=== PATIENT | female | born 1975 | race Caucasian/White ===

== ENCOUNTER 2022-11-22 04:53 | Observation (INO) ==
--- NOTE | 2022-11-02 11:31 | PAT Medication Instructions ---
Medication Instructions Date of Service November 02, 2022 Home Medications Medication Instructions Recorded Jean Arrington #1 ea 10/06/22 oxycodone-acetaminophen 5 mg-325 1 tab PO Q6H PRN pain #30 tabs 10/06/22 mg tablet (Percocet) Jean Arrington oxycodone-acetaminophen 5 mg-325 mg tablet (Percocet) 1 tab PO Q6H PRN azelastine 137 mcg (0.1 %) nasal spray aerosol 2 spray intranasal BID PRN fluticasone propionate 50 mcg/actuation nasal spray,suspension 2 spray intranasal QAM PRN hydrocortisone 2.5 % topical ointment 1 applic topical TID PRN loratadine 10 mg tablet (Claritin) 10 mg PO DAILY PRN naproxen 500 mg tablet,delayed release 500 mg PO BID PRN ondansetron 4 mg disintegrating tablet 4 mg PO Q6H PRN promethazine 25 mg tablet 25 mg PO UD PRN Continue as directed promethazine 25 mg tablet 25 mg PO UD PRN ondansetron 4 mg disintegrating tablet 4 mg PO Q6H PRN(if needed) ASK your surgeon for instructions naproxen 500 mg tablet,delayed release 500 mg PO BID PRN STOP taking 24 hours before surgery hydrocortisone 2.5 % topical ointment 1 applic topical TID PRN DO NOT take the morning of surgery loratadine 10 mg tablet (Claritin) 10 mg PO DAILY PRN Take morning of surgery With a small sip of water, OTHERWISE NOTHING TO EAT OR DRINK AFTER MIDNIGHT: oxycodone-acetaminophen 5 mg-325 mg tablet (Percocet) 1 tab PO Q6H PRN(if needed) azelastine 137 mcg (0.1 %) nasal spray aerosol 2 spray intranasal BID PRN(if needed) fluticasone propionate 50 mcg/actuation nasal spray,suspension 2 spray intranasal QAM PRN(if needed) Take evening before surgery oxycodone-acetaminophen 5 mg-325 mg tablet (Percocet) 1 tab PO Q6H PRN(if needed) azelastine 137 mcg (0.1 %) nasal spray aerosol 2 spray intranasal BID PRN(if needed) Other Notes If you have any questions please call us at [phone] or [phone] or [phone] or [phone]
--- NOTE | 2022-11-08 08:52 | Anesthesiology Consultation ---
Date of Service November 08, 2022 Assessment & Plan (1) Encounter for pre-operative examination: - significant anxiety regarding needles/procedures. Pt tolerated lab draws in PAT well today. - Outpatient joint pathway: Per surgeon and patient, plan for outpatient joint program. Upon review of chart- patient is an acceptable candidate for [facility] Day [facility] Program from anesthesia perspective pending perioperative course. Pending patient is motivated, has good support and surgeon's office completes Same Day Joint Program preop requirements- patient may proceed with outpatient JAYLEN. Chart Review Chart Review: Acceptable Risk for Surgery and Patient seen in Pre Admission Testing Teaching & Discussion Pre-Anesthesia Teaching/Discussion Notes: Instructed NPO after midnight before surgery, except medications with 15 cc of water. Medication instructions provided according to the PAT guidelines. History Surgery Operation Date: 11/22/22 13:00 Proposed Procedures p Left Total Hip Arthroplasty Anterior - Alvarez Becker, Height/Weight Height: 5 ft 1 in Weight: 65.5 kg Allergies Allergy/AdvReac Type Severity Reaction Status Date / Time burnett Allergy Unknown hives and Verified 11/01/22 09:58 itching doxycycline [From Vibramycin] Allergy Unknown nausea/vomi Verified 11/01/22 09:58 ting nitrofurantoin Allergy Unknown nausea/vomi Verified 11/01/22 09:58 ting paprika Allergy Unknown itching Verified 11/01/22 09:58 povidone Allergy Unknown itching-"if Verified 11/01/22 09:58 left on too long" tramadol Allergy Unknown neuro Verified 11/08/22 09:13 complications Medications Home Medications Medication Instructions Recorded Confirmed Last Taken Wheeled Walker #1 ea 10/06/22 10/06/22 Unknown oxycodone-acetaminophen 5 mg-325 1 tab PO Q6H PRN pain #30 tabs 10/06/22 11/01/22 Unknown mg tablet (Percocet) azelastine 137 mcg (0.1 %) nasal 2 spray intranasal BID PRN 11/01/22 11/01/22 Unknown spray aerosol Congestion fluticasone propionate 50 2 spray intranasal QAM PRN 11/01/22 11/01/22 Unknown mcg/actuation nasal Congestion spray,suspension hydrocortisone 2.5 % topical 1 applic topical TID PRN 11/01/22 11/01/22 Unknown ointment Hemorrhoids loratadine 10 mg tablet (Claritin) 10 mg PO DAILY PRN Allergy Symptoms 11/01/22 11/01/22 Unknown naproxen 500 mg tablet,delayed 500 mg PO BID PRN w/menstrual 11/01/22 11/01/22 Unknown release cycle only ondansetron 4 mg disintegrating 4 mg PO Q6H PRN nausea w/menstrual 11/01/22 11/01/22 Unknown tablet cycle promethazine 25 mg tablet 25 mg PO UD PRN nausea w/menstrual 11/01/22 11/01/22 Unknown cycle Past Medical History Medical History (Updated 11/08/22 @ 09:20 by Lora Newsome PA-C) GERD (gastroesophageal reflux disease) rare, only with spicy foods. stable per pt History of anesthesia problem awareness during rhinoplasty and breast augmentation, pt states that she has been told she processes anesthesia quickly History of anxiety "w/procedures and needles" Hx gestational diabetes Nausea and vomiting after administration of anesthetic agent denies needing scop patch Patient denies h/o stroke, seizures, heart attack, heart failure, HTN, blood hari ts or blood transfusions. Exercise / Class Metabolic Activity II 4-5 Yardwork/Stairs/Walk up hill (denies chest discomfort or shortness of breath with 1 FOS) Past Surgical History Surgical History History of cervical cerclage Hx laparoscopic cholecystectomy Hx of anterior cruciate ligament tear reconstruction lt. knee Hx of breast augmentation age 15 Hx of breast reconstruction done w/mastectomy Hx of section Hx of colonoscopy Hx of mastectomy ~a few years ago; bilat.-"for dense tissue and implants causing pain" Hx of oral surgery lt front tooth, implant/crown-"fake tooth" Hx of rhinoplasty age 16 Past Anesthesia History No Family Hx of Anesthesia Complications and Other (awareness during rhinoplasty and breast augmentation) History of PONV History of PONV (denies needing scop patch) and Hx of Motion Sickness Social History Smoking Status: Never smoker Do You Dip or Chew Tobacco: No Hx Alcohol Use: Yes alcohol intake frequency: holidays/special occasions only Hx Substance Use: No substance use type: does not use Review of Systems Patient denies chest pain, shortness of breath, dyspnea on exertion, snoring, witnessed apneas, fever, chills, cough, wheezing, or palpitations. Physical Exam Vital Signs Vitals BP 125/89 P 91 TEMP 98.3 SP02 98% on RA RESP 17 Physical Full cervical extension range of motion without pain TMD 3.5 finger breadths Mallampati Score 1 Dentition: implant-front left upper; denies chipped or loose teeth, bridges Lungs: normal respiratory effort. Clear throughout to auscultation, no adventitious breath sounds Cardiac: regular rate and rhythm, no murmurs noted Carotid arteries: negative bruit bilat Lab Results Anesthesia Preop Results Results Anesthesia Widget: WBC 6.40 K/ul (4.8-10.8) 11/08/22 Hgb 13.7 g/dl (12.0-16.0) 11/08/22 Hct 41.4 % (34.1-44.9) 11/08/22 Plt 378 K/uL (130-400) 11/08/22 Na 139 mmol/L (136-145) 11/08/22 K 4.1 mmol/L (3.5-5.1) 11/08/22 Cl 105 mmol/L (98-107) 11/08/22 CO2 27 mmol/L (21-32) 11/08/22 BUN 13 mg/dl (6-23) 11/08/22 Creat 0.72 mg/dl (0.6-1.2) 11/08/22 Glucose Level 119 mg/dl (70-99(Fasting)) H 11/08/22 PT 9.8 Seconds (9.0-12.0) 11/08/22 PTT 25.1 Seconds (21.0-31.0) 11/08/22 INR 0.9 (0.9-1.1) 11/08/22 Blood Type A Positive 11/08/22 Antibody Screen NEGATIVE 11/08/22 Testing Electrocardiogram Date: 11/08/22 NSR, rate 93 bpm Chest X-Ray Date: 11/08/22 Cardiomediastinal and hilar silhouettes are within normal limits. There is no pneumothorax, pleural effusion, airspace consolidation or overt pulmonary edema. Bones of the chest appear grossly intact. Cholecystectomy. IMPRESSION: No acute process. COVID-19 Risk Screen Screening Information COVID-19 Screen Date: 11/08/22 Exposure 21 Days Family/Household +COVID Last 21 Days: No Exposure 10 Days Any COVID Exposure Last 10 Days: No Symptoms Last 10 Days Experienced COVID Sx Last 10 Days: No + COVID 0-90 Days COVID + in Last 0-90 Days: No
--- NOTE | 2022-11-18 16:27 | History & Physical Report ---
Date of Service November 18, 2022 Assessment & Plan (1) Osteoarthritis of left hip: We will proceed with a left anterior total of arthroplasty. Postoperatively she will be in our outpatient joint protocol. She will be discharged home and started on aspirin for DVT prophylaxis. She plans to see [facility] the following day. History of Present Illness Chief Complaint: Osteoarthritis of the left hip. Primary Care Provider: Fabricio Curtis MD Emelina is a pleasant 47-year-old female who has been dealing with chronic worsening left hip and groin pain. X-rays initially showed some moderate osteoarthritis of the left hip. I sent her to Dr. Hawk for a left intraarticular hip injection. The injection helped her for about 3 days. Unfortunately, her symptoms are back and worse. She has already done physical therapy. She has been taking anti-inflammatories and has tried activity modification. She is really struggling with her left hip. She feels she cannot get back to activities. After failing conservative treatment, she has elected to proceed with a left anterior total of arthroplasty. Allergies Allergy/AdvReac Type Severity Reaction Status Date / Time burnett Allergy Unknown hives and Verified 11/01/22 09:58 itching doxycycline [From Vibramycin] Allergy Unknown nausea/vomi Verified 11/01/22 09:58 ting nitrofurantoin Allergy Unknown nausea/vomi Verified 11/01/22 09:58 ting paprika Allergy Unknown itching Verified 11/01/22 09:58 povidone Allergy Unknown itching-"if Verified 11/01/22 09:58 left on too long" tramadol Allergy Unknown neuro Verified 11/08/22 09:13 complications Home Medications Medication Instructions Recorded Confirmed Type Wheeled Walker #1 ea 10/06/22 10/06/22 Rx oxycodone-acetaminophen 5 mg-325 1 tab PO Q6H PRN pain #30 tabs 10/06/22 11/01/22 Rx mg tablet (Percocet) azelastine 137 mcg (0.1 %) nasal 2 spray intranasal BID PRN 11/01/22 11/01/22 History spray aerosol Congestion fluticasone propionate 50 2 spray intranasal QAM PRN 11/01/22 11/01/22 History mcg/actuation nasal Congestion spray,suspension hydrocortisone 2.5 % topical 1 applic topical TID PRN 11/01/22 11/01/22 History ointment Hemorrhoids loratadine 10 mg tablet (Claritin) 10 mg PO DAILY PRN Allergy Symptoms 11/01/22 11/01/22 History naproxen 500 mg tablet,delayed 500 mg PO BID PRN w/menstrual 11/01/22 11/01/22 History release cycle only ondansetron 4 mg disintegrating 4 mg PO Q6H PRN nausea w/menstrual 11/01/22 11/01/22 History tablet cycle promethazine 25 mg tablet 25 mg PO UD PRN nausea w/menstrual 11/01/22 11/01/22 History cycle Past Med/Surg History Medical History GERD (gastroesophageal reflux disease) rare, only with spicy foods. stable per pt History of anesthesia problem awareness during rhinoplasty and breast augmentation, pt states that she has been told she processes anesthesia quickly History of anxiety "w/procedures and needles" Hx gestational diabetes Nausea and vomiting after administration of anesthetic agent denies needing scop patch Surgical History History of cervical cerclage Hx laparoscopic cholecystectomy Hx of anterior cruciate ligament tear reconstruction lt. knee Hx of breast augmentation age 15 Hx of breast reconstruction done w/mastectomy Hx of section Hx of colonoscopy Hx of mastectomy ~a few years ago; bilat.-"for dense tissue and implants causing pain" Hx of oral surgery lt front tooth, implant/crown-"fake tooth" Hx of rhinoplasty age 16 Social History Smoking Status: Never smoker Second Hand Exposure: No; Hx Alcohol Use: Yes Hx Substance Use: No Preferred Language: Belgian Communication Ability: Effective Children Teacher Required: No Beliefs That Will Affect Care: None Current Living Situation: Spouse and Family Feels Safe at Home: Yes Assistive Devices: Contacts, Glasses and Other Review of Systems All systems reviewed & are unremarkable except as noted in HPI & below. Physical Exam On physical examination of the left hip, she can flex 200 degrees. She had 30 degrees of external rotation 10 degrees of internal rotation. Most of her pain is located in the groin.. Constitutional WD/WN, vitals as above Eyes PERRL, conjunctivae normal, anicteric sclerae ENMT external ear and nose normal, oropharynx normal Neck trachea midline, no thyromegaly Respiratory normal respiratory effort, lungs clear to auscultation Cardiovascular RRR, no murmur, no edema Gastrointestinal (Abdomen) normal bowel sounds, soft, nontender, no hepatosplenomegaly Skin no rashes, warm and dry Psychiatric A+Ox3, euthymic affect Results & Data Results & Data Laboratory Results . Diagnostic Findings X-rays of the left hip show advanced osteoarthritis with joint space narrowing, osteophyte formation, and [id number] articulation. PG Care Time/CCT Total # of Minutes Spent Total Time Spent with Patient: Total time spent is greater than 50% in coordination of care (as documented) at patient's floor/unit and/or counseling patient: Coding Level of Care Code None Diagnoses Osteoarthritis of left hip M16.12
[2022-11-22] MEDS ORDERED: dexAMETHasone 4 MG TAB PO SCH (06:00)
[2022-11-22] MEDS ORDERED: FAMOTIDINE 20 MG TAB PO SCH (06:00)
[2022-11-22] MEDS ORDERED: ACETAMINOPHEN 500 MG TAB PO SCH (06:00)
[2022-11-22] MEDS ORDERED: ORTHO JOINT MIX INFIL SCH (06:00)
[2022-11-22] MEDS ORDERED: TRANEXAMIC ACID 1,000 MG **IV Pre-op IV SCH (06:00)
[2022-11-22] MEDS ORDERED: TRANEXAMIC ACID 1,000 MG **IV Intra-op IV SCH (06:00)
[2022-11-22] MEDS ORDERED: LR 500ML BOLUS, THEN 15ML/HR IV SCH (06:00)
[2022-11-22] MEDS ORDERED: LR 60ML/HR IV SCH (06:00)
[2022-11-22] MEDS ORDERED: GABAPENTIN 300 MG CAP PO SCH (06:00)
[2022-11-22] MEDS ORDERED: ceFAZolin 2000MG 2,000 MG/15 ML SYR IV SCH (06:00)
[2022-11-22 06:16] LABS: Pregnancy Test, Serum Negative (Negative)
[2022-11-22] MEDS ORDERED: MEPIVACAINE HCL 1.5% 30 ML VIAL ONE (06:16)
--- NOTE | 2022-11-22 06:31 | History & Physical Bridge Note ---
Date of Service November 22, 2022 History & Physical Bridge Note I have examined the patient, reviewed the History & Physical and in the interval since the performance of the History & Physical I have noted the following changes of clinical significance: no changes noted
[2022-11-22] MEDS ORDERED: fentaNYL citrate 100 MCG/2 ML VIAL ONE (06:37)
[2022-11-22] MEDS ORDERED: MIDAZOLAM HCL 1 MG/ML 2ML VIAL ONE ×2 (06:37→07:24)
[2022-11-22] MEDS ORDERED: ONDANSETRON INJ 2 MG/ML 2 ML VIAL ONE ×2 (06:37→09:18)
[2022-11-22] MEDS ORDERED: PROPOFOL IV EMULSION 10 MG/ML 20 ML VIAL IV ONE (06:37)
[2022-11-22] MEDS ORDERED: LIDOCAINE 2% MPF LOCAL 5 ML VIAL INFIL ONE (06:37)
[2022-11-22] MEDS ORDERED: ONDANSETRON INJ 2 MG/ML 2 ML VIAL IV PRN ×2 (06:48→13:49)
[2022-11-22] MEDS ORDERED: ePHEDrine sulfate 50 MG/ML AMP IV PRN (06:48)
[2022-11-22] MEDS ORDERED: ATROPINE SULFATE 0.1 MG/ML 10ML SYR IV PRN (06:48)
[2022-11-22] MEDS ORDERED: fentaNYL citrate 100 MCG/2 ML VIAL IV PRN (06:48)
[2022-11-22] MEDS ORDERED: ORTHO JOINT ANESTHETIC ONE (07:08)
[2022-11-22] MEDS ORDERED: KETAMINE 50 MG/5 ML SYRINGE ONE (07:31)
[2022-11-22] MEDS ORDERED: PHENYLEPHRINE HCL 10 MG/ML VIAL ONE (08:23)
--- NOTE | 2022-11-22 08:23 | Operative Report ---
PG Post Operative Report Pre & Post Diagnosis Operation Date: 11/22/22 07:15 Pre-Op Diagnosis: Degenerative Joint Disease Left Hip Post-Op Diagnosis: Degenerative Joint Disease Left Hip I identified the patient and participated in the time-out.: Yes Procedure Operation Date: 11/22/22 07:15 Actual Procedures p Left Total Hip Arthroplasty Anterior(Left) - Alvarez Becker DO Surgeon Alvarez Becker DO Gang Investigator Alvarez Noel PA-C Estimated Blood Loss 100 Findings Consistent with Post-Op Diagnosis Specimens Left femoral head Description of Procedure Implants used I used a [employer]immerBiomet total hip arthroplasty system with a size 3 standard offset Avenir Complete stem, a 48 mm G7 cup with a 25mm screw, an E1 polyethyl serg liner, a 32 mm ceramic head with a 0 neck. Emelina arrived at the hospital for the above procedure. She was seen in the preoperative holding area and the operative extremity was identified and signed. She was given a spinal anesthetic, a preoperative antibiotic, and TXA. She was then taken back to the operating room and laid on the table in the supine position. She was given basic sedation. The operative leg was secured to a Puristst leg positioner. The hip was then prepped and draped in sterile fashion. A timeout was done and the patient and the operative extremity was properly identified. An anterior approach was used. Dissection was taken down through the fascia and the tensor muscle belly was retracted laterally and the rectus was retracted medially. The circumflex vessels were identified and ligated. The capsule was then incised and tagged for later repair. The femoral neck was then cut and the femoral head was removed. The acetabulum was exposed. Time was spent doing a complete circumferential labral release. Sequential reaming of the acetabulum up to a size 47 reamer was done. Final reamings were done under fluoroscopy to ensure appropriate version. A Biomet 48 mm G7 cup was then impacted into place. A single 25 mm screw was placed. The E1 polyethylene liner was then snapped into place. Surrounding soft tissues were then injected with 100 cc of an orthopedic pain control cocktail. The proximal femur was then exposed. Sequential broaching up to a size 3 broach was done. Off that broach a size 32 head with a 0 neck was trialed. The hip was reduced and fluoroscopic images showed anatomic alignment of the implants in acceptable length. The broach was removed. The final size 3 standard offset Avenir Complete stem was then impacted into place. A ceramic 32 mm head with a 0 neck was then impacted onto the stem and the hip was reduced. Final fluoroscopic images showed anatomic alignment of the hip. The capsule was then closed with #1 Vicryl suture. A dilute betadyne lavage was then done for 3 minutes. The joint was then irrigated with normal saline solution. The fascia was closed with #1 PDS suture. Skin was closed with 2-0 Vicryl, farzana, and a Silverlon dressing. She was then transferred to a hospital bed and taken to the post anesthesia care unit in stable condition. She tolerated the procedure well. Alvarez Noel PA-C, was present for the entire procedure. He was critical for patient positioning, prepping, draping, retraction exposure, wound closure and application of sterile dressing. I attest to the content of the Intraoperative Record and any orders documented therein. Any exceptions are noted below.
[2022-11-22] MEDS ORDERED: oxyCODONE/ACETAMINOPHEN 5mg/325mg TAB PO PRN (08:26)
--- NOTE | 2022-11-22 08:56 | Fluoroscopy Report ---
FL hip LT 1V CLINICAL HISTORY: LT ANTERIOR HIPleft hip arthroplasty COMPARISON STUDY: None FLUOROSCOPY TIME: 12.6 seconds FLUOROSCOPY IMAGES: 1 EXPOSURE DOSE: 0.902 mGy (Air Kerma) FINDINGS: Satisfactory alignment of the left hip total joint arthroplasty. Expected postoperative sof t tissue swelling with deep tissue air. No acute fracture or unexpected opaque foreign body. IMPRESSION: Fluoroscopic assistance as above. ACT 112: Negative or not required by law. Electronically signed by: Néstor Huerta M.D. 11/22/2022 8:55 AM
--- NOTE | 2022-11-22 09:24 | XRay Report ---
AP PELVIS, CROSSTABLE LATERAL LEFT HIP History: Left total hip arthroplasty. Degenerative arthritis. Postop. FINDINGS: The patient is status post a left total hip arthroplasty. The hardware is intact. No fractu re or dislocation. Skin farzana are in place. IMPRESSION: Left total hip arthroplasty. No evidence for hardware complication. ACT 112: Negative or not required by law. Electronically signed by: Deacon Torre M.D. 11/22/2022 9:23 AM
--- NOTE | 2022-11-22 09:49 | Anesthesiology Progress Note ---
Date of Service November 22, 2022 Anesthesia Post Procedure Vital Signs Vital Signs: Temp Pulse Pulse Resp BP Pulse Ox O2 Del Method 11/22/22 09:35 98.1 F 92 H 20 112/64 97 Room Air 11/22/22 09:05 85 15 107/78 95 Room Air 11/22/22 09:25 91 H 23 116/62 95 Room Air 11/22/22 09:15 98.1 F 88 18 117/68 97 Room Air 11/22/22 08:55 83 23 107/76 96 Room Air 11/22/22 08:45 97.7 F 83 15 117/77 99 Oxymask 11/22/22 05:23 98.6 F 92 H 20 129/91 99 Room Air O2 Flow Rate 11/22/22 09:35 11/22/22 09:05 11/22/22 09:25 11/22/22 09:15 11/22/22 08:55 11/22/22 08:45 5 11/22/22 05:23 Pain Intensity Left Hip: Pain Intensity: 7 Transfer of Care Handoff Completed per policy Notes Mental Status: alert / awake / arousable and participated in evaluation Patient Amnestic to Procedure: Yes Nausea / Vomiting: adequately controlled Pain: adequately controlled Airway Patency, RR, SpO2: stable & adequate BP & HR: stable & adequate Hydration State: stable & adequate Neuraxial Anesthesia: was administered and sensory block is resolving Anesthetic Complications: no major complications apparent and Pt Satisfied with anesthetic care
[2022-11-22] MEDS ORDERED: AZELASTINE HCL 0.1% NASAL 200 SPRAYS/27,400 MCG BTL NAE PRN (13:49)
[2022-11-22] MEDS ORDERED: LORATADINE 10 MG TAB PO PRN (13:49)
[2022-11-22] MEDS ORDERED: HYDROmorphone INJ 0.5 MG/0.5 ML SYR IV PRN (13:49)
[2022-11-22] MEDS ORDERED: METOCLOPRAMIDE HCL INJ 5 MG/ML 2 ML VIAL IV PRN (13:49)
[2022-11-22] MEDS ORDERED: PROMETHAZINE HCL 25 MG TAB PO PRN (13:49)
[2022-11-22] MEDS ORDERED: NALOXONE HCL 0.4 MG/1 ML VIAL/CARP IV PRN (13:49)
[2022-11-22] MEDS ORDERED: bisacodyL 10 MG SUPP PR PRN (13:49)
[2022-11-22] MEDS ORDERED: FLUTICASONE PROPIONATE NA SPR 16 GM BTL PRN (13:49)
[2022-11-22] MEDS ORDERED: MAGNESIUM HYDROXIDE SUSP 30 ML UDC PO PRN (13:49)
[2022-11-22] MEDS ORDERED: HYDROCORTISONE HC 2.5% CRM 30GM TUBE EXT PRN (13:54)
[2022-11-22] MEDS: SODIUM CHLORIDE 0.9% 1000ML 1,000 ML IV SCH (14:16)
[2022-11-22] MEDS: KETOROLAC 30 MG/ML VIAL IV SCH ×2 (14:40→20:02)
[2022-11-22] MEDS: ACETAMINOPHEN 500 MG TAB PO SCH ×2 (14:40→21:48)
[2022-11-22] MEDS: oxyCODONE HCL IR 5 MG TAB (IMMEDIATE RELEASE) PO PRN (18:11)
[2022-11-22] MEDS: ceFAZolin 2000MG 2,000 MG/15 ML SYR IV SCH (20:02)
[2022-11-22] MEDS: DOCUSATE SODIUM 100 MG CAP PO SCH (20:11)
[2022-11-22] MEDS ORDERED: SENNA 8.6 MG TAB PO SCH (21:00)
[2022-11-22] MEDS: ASPIRIN 81 MG ECTAB PO SCH (21:28)
[2022-11-23] MEDS: SODIUM CHLORIDE 0.9% 1000ML 1,000 ML IV SCH (00:39)
[2022-11-23] MEDS: KETOROLAC 30 MG/ML VIAL IV SCH ×3 (01:32→08:07)
[2022-11-23] MEDS: ceFAZolin 2000MG 2,000 MG/15 ML SYR IV SCH (02:51)
[2022-11-23] MEDS: ACETAMINOPHEN 500 MG TAB PO SCH (06:17)
[2022-11-23] MEDS: oxyCODONE HCL IR 5 MG TAB (IMMEDIATE RELEASE) PO PRN (06:53)
--- NOTE | 2022-11-23 06:58 | Orthopedic Progress Note ---
Date of Service November 23, 2022 Assessment & Plan (1) Status post left hip replacement: Overall she is doing fairly well. She is no longer lightheaded when she stands up. She will get some breakfast this morning. She will be seen by physical therapy this morning for ambulation and range of motion exercises. If she does well with that, she can be discharged home. She will follow-up orthopedics in 2 weeks. She is on aspirin for DVT prophylaxis. Valente Tarango was seen and examined at bedside this morning. Overall she is feeling pretty well. She is still having a little bit of pain in the left hip. She is no longer becoming lightheaded when she sits up. She was able to get some sleep last night. She has no complaints.. Review of Systems All systems reviewed & are unremarkable except as noted in HPI & below. Physical Exam On physical examination of left hip, the dressing is clean and dry. Her leg is out full extension. She has active dorsiflexion plantarflexion of her left ankle.. Results & Data Results & Data Laboratory Results . Diagnostic Findings Postoperative x-rays of the left hip show the prosthesis to be in anatomic alignment without any evidence of fracture, desiccation, or loosening. PG Care Time/CCT Total # of Minutes Spent Total Time Spent with Patient: Total time spent is greater than 50% in coordination of care (as documented) at patient's floor/unit and/or counseling patient: Coding Level of Care Code 69288 Post Operative Follow-Up Diagnoses Status post left hip replacement Z96.642
--- NOTE | 2022-11-23 06:59 | Discharge Summary ---
Date of Service November 23, 2022 Admission HPI (Per Admitting) Emelina is a pleasant 47-year-old female who has been dealing with chronic worsening left hip and groin pain. X-rays initially showed some moderate osteoarthritis of the left hip. I sent her to Dr. Hawk for a left intraarticular hip injection. The injection helped her for about 3 days. Unfortunately, her symptoms are back and worse. She has already done physical therapy. She has been taking anti-inflammatories and has tried activity m odification. She is really struggling with her left hip. She feels she cannot get back to activities. After failing conservative treatment, she has elected to proceed with a left anterior total of arthroplasty. Admission Exam (Per Admitting) On physical examination of the left hip, she can flex 200 degrees. She had 30 degrees of external rotation 10 degrees of internal rotation. Most of her pain is located in the groin.. Principal Diagnosis Same as "Discharge Diagnosis" noted below under Discharge Instructions. Discharge Exam On physical examination of left hip, the dressing is clean and dry. Her leg is out full extension. She has active dorsiflexion plantarflexion of her left ankle.. Discharge Data Procedures Performed Operation Date: 11/22/22 07:15 Actual Procedures p Left Total Hip Arthroplasty Anterior(Left) - Alvarez Becker DO Ordered Studies 11/22/22 07:15 FL hip LT 1V Routine Hospital Course (1) Status post left hip replacement: On November 22, 2022 Emelina arrived at [facility] and underwent a left hip replacement without complication. She had a spinal anesthetic. Postoperatively she was started on aspirin for DVT prophylaxis. She was initially in our outpatient joint protocol. Postoperatively, she was having trouble with orthostatic hypotension. She was also feeling nauseous. We decided to admit her overnight. On postop day #1, she was doing much better. She was no longer nauseous and she was able to participate well with physical therapy. She was then discharged home. She will follow-up with orthopedics in 2 weeks. PG Care Time/CCT Total # of Minutes Spent Total Time Spent with Patient: Total time spent is greater than 50% in coordination of care (as documented) at patient's floor/unit and/or counseling patient: Discharge Plan Discharge Items Patient Disposition: Home - Home Health Services Reason For Visit: POST SURGICAL CARE Discharge Diagnosis: Left hip replacement Activity: Per Instructions section Non-emergency contact: Surgeon Call non-emergency contact if: your wound has increased redness and your wound has increased drainage Follow-up/Referrals: [facility] [Outside] (as per surgeon's office ) Fabricio Curtis MD [Primary Care Provider] - Alvarez Becker DO [Physician] - Diet: Regular Addtl Attending Provider Instructions: Activity and Therapy Recommendations: * If you are using [facility] then therapy will be provided at your home until they feel you have accomplished all of your goals. * If you are using [facility] then Physical Therapy will be provided until they feel you are ready to start Outpatient Physical Therapy. * If you are not using home therapy then Outpatient Physical Therapy should start about 3-5 days from your day of surgery. Therapy will last about 6-10 weeks * You were shown a series of exercises in the hospital. Do these exercises three times each day including the exercises you were shown in physical therapy. * Get up and walk several times each day.~ For the first four weeks, try not to stand or walk for more than one hour at a time. If you do stand or walk for more than one hour, you will not hurt anything, but your leg will likely swell.~~ * As you feel comfortable, you may change from the walker or crutches to a cane and~then to independent walking. Medications: * Narcotic You will likely be sent home from the hospital with a prescription for the narcotic pain medication that worked best throughout your stay. * Aspirin Most patients will be required to take Aspirin 81mg twice a day for 6 weeks after surgery. This is obtained [id number] and a prescription is not necessary. * Other medications may be prescribed for specific circumstances. If you have any questions, please call the office at . * Resume previous home medications unless otherwise instructed TEDs/Elastic Stockings: The white elastic stockings help limit swelling and prevent blood clots from forming in your legs. The more you wear them, the more they work. Wear them for six weeks. Dressing Care: Leave the Silverlon dressing in place for 7 days. After 7 days you may remove the dressing. If the incision is not draining then you may leave the farzana open to air. If there is a little bit of drainage or if the farzana are getting stuck on your clothing then cover the incision with a dry dressing. The farzana will be removed at your 2 week follow-up appointment. Showering: You may shower with the Silverlon dressing in place. Do not let the shower spr ay hit the dressing directly. Pat the Silverlon dressing dry. If the dressing becomes wet underneath, then simply remove the dressing. Keep the incision dry until you are 7 days out from the day of surgery. After 7 days you may remove the Silverlon dressing and shower with the farzana exposed. Let soapy water run over the farzana and pat them dry. Do not scrub or soak the incision. Things To Watch For: * Drainage from the incision site that occurs more than one week after your surgery. * Increased redness at the incision site. * Fever above 102 degrees Fahrenheit. * Unusual chest pain or shortness of breath. * Call [facility] at with any of the above problems Follow-Up Visit: Follow-up with Dr. Becker's PA (Alvarez Noel) 2-3 weeks after your day of surgery. He will remove your farzana and answer any questions. If you have any additional questions or concerns, Dr Becker is usually in the office at the same time and will be available An appointment was probably scheduled when you signed-up for surgery in the office. If you have any questions call Office Instructions: More detailed instructions as well as Frequently Asked Questions were provided in a folder by our office when you signed-up for surgery. Please review these instructions when you get home. If you have any further questions or concerns, please feel free to call the office at [phone] Pending Studies at Discharge: No Stand-Alone Forms: Anesthesia/Sedation, Adult, My [facility] [employer], Smoking Cessation Medications and DC Order Prescriptions: New aspirin [Adult Aspirin Regimen] 81 mg tablet,delayed release (DR/EC) 81 mg PO BID Qty: 84 0RF celecoxib [Celebrex] 200 mg capsule 200 mg PO BID Qty: 28 0RF Rx Instructions: Take 1 pill twice a day for 2 weeks after surgery Continued (DME) Jean Gutierrezc See Rx Instructions .MEDSUPPLY Qty: 1 0RF Rx Instructions: As directed loratadine [Claritin] 10 mg Tablet 10 mg PO DAILY PRN (Reason: Allergy Symptoms) promethazine 25 mg tablet 25 mg PO UD PRN (Reason: nausea w/menstrual cycle) Label Comments: usually only first 2 days of cycle azelastine 137 mcg (0.1 %) aerosol,spray 2 spray INTRANASAL BID PRN (Reason: Congestion) hydrocortisone 2.5 % Ointment 1 applic TOPICAL TID PRN (Reason: Hemorrhoids) ondansetron 4 mg Tablet,Disintegrating 4 mg PO Q6H PRN (Reason: nausea w/menstrual cycle) Label Comments: alternates w/compazine fluticasone propionate 50 mcg/actuation spray,suspension 2 spray INTRANASAL QAM PRN (Reason: Congestion) oxycodone-acetaminophen [Percocet] 5-325 mg tablet 1 tab PO Q6H PRN (Reason: pain) Qty: 30 0RF Discontinued naproxen 500 mg Tablet,Delayed Release (Dr/Ec) 500 mg PO BID PRN (Reason: w/menstrual cycle only) Macey/Other Patient Handouts: DVT Post Op Prevention Admission Data Admit Date/Time: 11/22/22 12:43 Attending Provider: Alvarez Becker Admit Provider: Alvarez Becker Primary Care Provider: Fabricio Curtis
[2022-11-23] MEDS ORDERED: dexAMETHasone 4 MG TAB PO SCH (08:00)
[2022-11-23] MEDS ORDERED: MULTIVITAMIN TAB PO SCH (09:00)
[2022-11-23] MEDS: ASPIRIN 81 MG ECTAB PO SCH (09:22)
[2022-11-23] MEDS: DOCUSATE SODIUM 100 MG CAP PO SCH (09:22)
== END 2022-11-23 10:27 | disposition home health service (06) ==
LOC: ASU 04:53 → 3W 04:53